=== PATIENT | male | born 1970 | race Caucasian/White ===

== ENCOUNTER 2017-10-12 13:21 | Observation (INO) | payer OTHER, SELFPAY ==
[2017-10-12] VITALS (13 sets, daily range): BP systolic 119–148; BP diastolic 74–94; PULSE 55–83; RESP 13–18; TEMP 36.4–36.7; O2SAT 93–98; BMI 36.5; BMI 36.6
--- NOTE | 2017-10-12 13:52 | RAD_ITS ---
STUDY: X-RAY CHEST REASON FOR EXAM: Male, 47 years old. Chest pain. TECHNIQUE: Single AP portable view of the chest. COMPARISON: None. FINDINGS: EKG electrodes are seen. The lungs are clear and expanded. Scattered calcified granulomas. There is no demonstrated pleural abnormality. Normal size heart. Normal mediastinum and gaurang. Normal visualized pulmonary arteries. Normal visualized aortic arch and descending thoracic aorta. There are diffuse degenerative changes of the visualized thoracic spine. Normal visualized ribs, clavicles, and shoulders. There is no demonstrated abnormality of the visualized soft tissue structures of the upper abdomen. RAD/Chest 1 View (Portable) IMPRESSION: Scattered calcified granulomas. Electronically Signed: Bryson Vizcaino MD at 15:01 EST Tel [phone], Service support ,
--- NOTE | 2017-10-12 13:52 | EKG12_ITS ---
Test Reason : Blood Pressure : / mmHG Vent. Rate : 074 BPM Atrial Rate : 074 BPM P-R Int : 134 ms QRS Dur : 100 ms QT Int : 396 ms P-R-T Axes : 033 -31 -20 degrees QTc Int : 439 ms Normal sinus rhythm Left axis deviation Voltage criteria for left ventricular hypertrophy Abnormal ECG Confirmed by ARAVIND WOODWARD, SHAY ([id number]), newspaper editor SIMEON FLORES ([id number]) on 10/15/2017 1:58:18 PM Referred By: MJ Confirmed By:SHAY NAZARIO MD
[2017-10-12 14:27] LABS: Anion Gap 7 (5-15); BUN 18 mg/dL (7-18); Chloride 106 mmol/L (98-107); Creatinine, Serum 1.29 mg/dL (0.70-1.30); EST Glomerular Filtration Rate 63 mL/min (>60); Est Glom Filt Rate - Afr Amer 77 mL/min (>60); Estimated Creatinine Clearance 68.49 ml/min; Glucose 102 mg/dL (74-106); Potassium 4.3 mmol/L (3.5-5.1); Sodium Level 138 mmol/L (136-145)
[2017-10-12 14:39] LABS: Absolute Lymphocyte Count 1.95 X10^3/ul (0.83-4.51); Basophil# 0.06 X10^3/uL; Basophil% 0.9 % (0-1); Eosinophil# 0.12 X10^3/uL; Eosinophils% 1.8 % (0-5); Hematocrit 47.9 % (40-54); Hemoglobin 16.5 g/dl (13.0-16.5); Lymphocyte # 1.95 X10^3/ul (4.0); Lymphocyte % 29.5 % (19-41); Mean Corp Hgb Conc 34.4 g/gl (32-36); Mean Corpuscular Hgb 29.4 pg (27.0-32.0); Mean Corpuscular Volume 85.4 fL (80-94); Mean Platelet Vol. 9.2 fl (6.2-12.0); Monocyte# 0.51 X10^3/uL; Monocyte% 7.7 % (0-10); Neutrophil # 3.98 X10^3/uL (2.7-7.7); Neutrophil % 60.1 % (47-70); Platelet Count 277 K/mm3 (150-450); RBC Distribution Width CV 13.3 % (11.6-14.6); RBC Distribution Width SD 40.8 fl (35.1-43.9); Red Blood Count 5.61 M/mm3 (4.6-6.2); White Blood Count 6.6 K/mm3 (4.4-11.0)
[2017-10-12] MEDS: 0.9% Normal Saline 1,000 ML 150 ML IV (14:39)
[2017-10-12] MEDS: Aspirin 81 MG TAB.CHEW 324 MG PO (14:39)
[2017-10-12 14:43] LABS: POSITIVE COUNT NO; POSITIVE DIFFERENTIAL NO; POSITIVE MORPHOLOGY NO
--- NOTE | 2017-10-12 15:43 | ED.VISSUMM ---
- ER Visit Summary Date of Service: 10/12/17 Chief Complaint: [Chest pain] History of Present Illness: The patient is a 47 M [presents to the emergency department with chest discomfort that started today. Patient was at the gym and after doing a 15 minute warmup on the treadmill and doing some work with ropes patient developed discomfort in his chest and left arm. Patient felt short of breath and lightheaded. When his symptoms did not resolve he presented to the ER for further evaluation. Patient recently had blood work with his primary care physician and was scheduled to have a stress test tomorrow. Patient has no cardiac history otherwise. Patient has never had discomfort like this. Currently he rates it chest pain 2 out of 10. She denies any recent travel or surgery. 3 of PE or cancer.] Physical Examination: [HEENT-PERRLA, EOMI. Cranial nerves II through XII grossly intact. TMs clear. Mucous membranes moist. No adenopathy. Cardiovascular-regular rate and rhythm without murmur or ectopy Lungs-clear to auscultation, chest wall stable without crepitus or subcu emphysema Abdomen-normoactive bowel sounds, soft, nontender, no rebound or rigidity, no peritoneal signs. Extremities-intact ?4, normal range of motion, normal pulses, atraumatic] Test Results: [EKG obtained on arrival shows sinus rhythm with a ventricular rate of 74 bpm patient had flipped T waves in leads III and aVF which when compared with prior EKG from 2013 these changes are chronic. CBC with differential was normal. Chemistries were unremarkable. Troponin was less than 0.02.] Emergency Department Course and Treatment: [Patient received aspirin in the emergency department and sublingual nitro which really did not improve his pain.] Treatment Plan: Patient will be admitted for further workup and evaluation of his chest pain [] Disposition: [Admit] Impression: [Chest pain-rule out acute coronary syndrome] This note was generated with [employer] dictation software. It may contain incorrect words, spelling, and punctuation that were not noted in review of the chart prior to signing ED Disposition - Plan for ED Patient: Chief Complaint: Chest Pain Referrals: Fidelia Hurley DO [Primary Care Provider] -
--- NOTE | 2017-10-12 15:46 | ED.DCSUM_ITS ---
- ER Visit Summary Date of Service: 10/12/17 Chief Complaint: [Chest pain] History of Present Illness: The patient is a 47 M [presents to the emergency department with chest discomfort that started today. Patient was at the gym and after doing a 15 minute warmup on the treadmill and doing some work with ropes patient developed discomfort in his chest and left arm. Patient felt short of breath and lightheaded. When his symptoms did not resolve he presented to the ER for further evaluation. Patient recently had blood work with his primary care physician and was scheduled to have a stress test tomorrow. Patient has no cardiac history otherwise. Patient has never had discomfort like this. Currently he rates it chest pain 2 out of 10. She denies any recent travel or surgery. 3 of PE or cancer.] Physical Examination: [HEENT-PERRLA, EOMI. Cranial nerves II through XII grossly intact. TMs clear. Mucous membranes moist. No adenopathy. Cardiovascular-regular rate and rhythm without murmur or ectopy Lungs-clear to auscultation, chest wall stable without crepitus or subcu emphysema Abdomen-normoactive bowel sounds, soft, nontender, no rebound or rigidity, no peritoneal signs. Extremities-intact ?4, normal range of motion, normal pulses, atraumatic] Test Results: [EKG obtained on arrival shows sinus rhythm with a ventricular rate of 74 bpm patient had flipped T waves in leads III and aVF which when compared with prior EKG from 2013 these changes are chronic. CBC with differential was normal. Chemistries were unremarkable. Troponin was less than 0.02.] Emergency Department Course and Treatment: [Patient received aspirin in the emergency department and sublingual nitro which really did not improve his pain. ] Treatment Plan: Patient will be admitted for further workup and evaluation of his chest pain [] Disposition: [Admit] Impression: [Chest pain-rule out acute coronary syndrome] This note was generated with [employer] dictation software. It may contain incorrect words, spelling, and punctuation that were not noted in review of the chart prior to signing ED Disposition - Plan for ED Patient: Chief Complaint: Chest Pain Referrals: Fidelia Hurley DO [Primary Care Provider] -
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
[2017-10-13 02:45] VITALS: BP 125/76; PULSE 63; RESP 16; TEMP 36.6; O2SAT 98
[2017-10-13 02:59] VITALS: PULSE 53
--- NOTE | 2017-10-13 05:55 | ECHOD_ITS ---
Reason For Study: Chest Pain Procedure This was a 2D Doppler, Color Flow transthoracic echocardiogram. Exam performed in department. Left Ventricle Normal LV size. Mild concentric left ventricular hypertrophy. Left ventricular systolic function is normal. The estimated ejection fraction is 65 %. No regional wall motion abnormalities noted. Right Ventricle Normal RV size. Normal systolic function. Atria Normal left atrium. Normal right atrium. Mitral Valve Normal mitral valve. Tricuspid Valve Normal tricuspid valve. Aortic Valve Normal aortic valve. Pulmonic Valve Normal pulmonic valve. Great Vessels Normal aortic root. The pulmonary artery is normal size. Inferior vena cava collapse with respiration. Pericardium/Pleural No pericardial effusion. MMode/2D Measurements & Calculations LVIDd: 4.0 cm IVSd: 1.5 cm Ao root diam: 3.5 cm LVIDs: 2.7 cm LVPWd: 1.2 cm LA dimension: 3.4 cm RVDd: 3.0 cm FS: 32.1 % LAV(MOD-bp): 26.7 ml LA A4 area: 13.7 cm2 RA A4 area: 11.7 cm2 LAV(MOD-bp) Indexed: 12.1 ml/m2 LAV(MOD-sp2): 23.2 ml LAV(MOD-sp4): 29.4 ml Doppler Measurements & Calculations MV E max marky: 61.9 cm/sec Lat Peak E' Marky: 9.9 cm/sec Med Peak E' Marky: 5.5 cm/sec MV A max marky: 61.1 cm/sec E/E' lat: 6.3 E/E' med: 11.3 MV E/A: 1.0 Ao V2 max: 120.2 cm/sec LV V1 max: 108.0 cm/sec PA V2 max: 92.5 cm/sec Ao max P.8 mmHg LV V1 max P.7 mmHg Ao V2 mean: 86.8 cm/sec Ao mean P.3 mmHg Ao V2 VTI: 23.8 cm PI end-d marky: 111.7 cm/sec Interpretation Summary Normal LV size. Mild concentric left ventricular hypertrophy. Left ventricular systolic function is normal. The estimated ejection fraction is 65 %. Structurally normal valves. Ordering Physician: Ray Tyler Referring Physician: Fidelia Hurley Performed By: Ana Weems, KYM, RVT
[2017-10-13 06:17] VITALS: PULSE 85
--- NOTE | 2017-10-13 09:07 | STRESSREP ---
Stress Test Report Exercise myocardial perfusion stress test. 47 yo man with chest pain. Stress protocol: Resting EKG demonstrates normal sinus rhythm with a rate of 58 bpm. Resting blood pressure is 130/90 mmHg. The patient exercised according to the regular Juancarlos protocol for total duration of 12 minutes completing stage IV of the Juancarlos protocol. The maximum heart rate attained was 164 bpm which was 94% of the maximum predicted heart rate. The maximum workload attained was 13.7 metabolic equivalents. The patient maintained sinus rhythm throughout the recording. At rest there were no ST or T-wave changes noted suggest ischemia at peak exercise upsloping ST changes only were noted we did not meet the criteria for ischemia. The resting blood pressure was 130/90 and the final blood pressure was 182/84 mmHg with a rate pressure product of 29,100. No clinical angina was noted the test was terminated due to leg fatigue. Myocardial perfusion protocol: 11.8 mCi of technetium 99m sestamibi was injected at rest. The patient exercised according to the Juancarlos protocol for 12 minutes and at peak exercise 32.7 mCi of technetium 99m sestamibi was injected. Stress images were obtained. Stress and resting images were reconstructed and compared in the short axis vertical long and horizontal long axis. Gated images were also obtained. Perfusion SPECT analysis: Review of the stress images demonstrate normal uptake of tracer noted in all areas of the myocardium. The resting images similarly demonstrate normal uptake of tracer noted in all areas of the myocardium. No areas of reversibility are noted to suggest ischemia. No previous infarct is noted. Gated SPECT analysis: The ejection fraction is noted to be 66%. Conclusion: Normal exercise myocardial perfusion stress test at a high workload with no evidence of ischemia. Good excellent functional capacity. No arrhythmias noted. Preserved ejection fraction.
[2017-10-13 09:43] VITALS: BP 103/63; PULSE 56; RESP 18; TEMP 36.8; O2SAT 97
--- NOTE | 2017-10-13 11:04 | PCM.DC ---
You will use the following diet at home:: Other - Low-cholesterol Discharge Activity: Return to Normal Activity Call your doctor if you observe: Numbness or Tingling, Shortness of breath, Dizziness, Fainting spells, Chest pain, Increased palpitations (irregular heartbeat), Calf discomfort Allergies/Adverse Reactions: Allergies No Known Allergies Allergy (Verified 10/12/17 14:37) Medications to take at Discharge Atorvastatin Calcium [Lipitor] 40 mg PO QHS #30 tab 10/13/17 Pantoprazole Sodium [Protonix] 20 mg PO DAILY #30 tab 10/13/17 The following prescriptions were given: Atorvastatin Calcium [Lipitor] 40 mg PO QHS #30 tab Pantoprazole Sodium [Protonix] 20 mg PO DAILY #30 tab Primary Care Physician: Fidelia Hurley DO [Primary Care Provider] - Please follow up with your Primary Care Physician in: 1-2 Weeks Proposed Discharge Date: 10/13/17
--- NOTE | 2017-10-13 11:05 | PCM.DC.SUM ---
<Marie Bonilla - Last Filed: 10/13/17 11:15> Discharge Date and Diagnosis Date of Admission: 10/12/17 Date of Discharge: 10/13/17 - Primary Discharge Diagnosis 1. Chest pain-ACS ruled out. 2. New diagnosis hyperlipidemia - Secondary Discharge Diagnosis Chronic Problems (Last Updated 10/05/17 @ 16:49 by Manuela Li) Hyperlipidemia (Chronic) Family history of ischemic heart disease (Chronic) Hospital Course and Treatment Imaging Results: Diagnostic Data Chest X-Ray 10/12/17 13:52 IMPRESSION: Scattered calcified granulomas. Electronically Signed: Bryson Vizcaino MD at 15:01 EST Tel [phone], Service support , Operations: None Procedures: 2-D Echocardiogram, Stress test Summary of Care Provided: The patient is a 47 year old M who was admitted 10/12/17 due to chest pain. Patient states he has had chronic chest pain for approximately 5 years which has increased in severity recently. His primary care physician referred him to Dr. Leon for outpatient stress test which was to be completed this morning. However, patient was exercising yesterday and had sharp pain with associated diaphoresis, shortness of breath and presented to the emergency room. Chest x-ray shows scattered calcified granulomas which is not a new finding. Patient had a CT scan 09/22/2017 which showed a stable 3 mm nodule in the lateral aspect of the right lower lobe. Troponin negative ?4. EKG without ST T changes. Echocardiogram shows an estimated ejection fraction of 65%. Patient underwent stress test which was negative for ischemia. He had a recent lipid panel which showed hyperlipidemia. He will begin atorvastatin 40 mg daily. He will also be discharged on Protonix 20 mg daily to see if this helps with his chronic chest pain. If no improvement after 1 month, he may discontinue. Recommend further outpatient follow-up with primary care physician. General: Alert, Oriented x3, Cooperative, No apparent distress HEENT: Atraumatic, PERRLA, EOMI, Normocephalic Neck: Supple, No JVD, Negative Carotid Bruits Lungs: Clear to auscultation, Normal air movement Cardiovascular: Regular rate, Regular Rhythm, Normal S1, Normal S2, No murmurs Abdomen: Bowel Sounds Present, Soft, Non Tender, Non-Distended, Obese Extremities: No clubbing, No cyanosis, No edema, Capillary Refill Less than 3 Seconds Skin: No rashes, No breakdown Musculoskeletal: No Tenderness to Palpation of Joints or Extremities Neurological: Cranial nerves II-XII grossly intact, Neuro grossly intact Psych/Mental Status: Normal Affect, Appropriate Patient seen and examined prior to discharge. Physical assessment as noted above. He denies further chest pain. Stable for discharge home with recommendations as noted above. This patient was seen by DAMASO Olvera under the supervision of Dr. Richter. Discharge Diet: Low fat/ Low Cholesterol Discharge Activity: Return to Normal Activity Call your doctor if you observe: Numbness or Tingling, Shortness of breath, Dizziness, Fainting spells, Chest pain, Increased palpitations (irregular heartbeat), Calf discomfort Home Medications: Medications to take at Discharge Atorvastatin Calcium [Lipitor] 40 mg PO QHS #30 tab 10/13/17 Pantoprazole Sodium [Protonix] 20 mg PO DAILY #30 tab 10/13/17 Following Prescrptions Were Given to Patient: Atorvastatin Calcium [Lipitor] 40 mg PO QHS #30 tab Pantoprazole Sodium [Protonix] 20 mg PO DAILY #30 tab Primary Care Physician: Fidelia Hurley DO [Primary Care Provider] - Please follow up with your Primary Care Physician in: 1-2 Weeks Disposition: Home Minutes spent on discharge:: 35 Patient Condition:: Stable Meaningful Use Info Meaningful Use Diagnoses (Choose all that apply): None applicable <Sergio Richter - Last Filed: 10/13/17 12:42> Discharge Date and Diagnosis - Secondary Discharge Diagnosis Chronic Problems (Last Updated 10/05/17 @ 16:49 by Manuela Li) Hyperlipidemia (Chronic) Family history of ischemic heart disease (Chronic) Hospital Course and Treatment Summary of Care Provided: Hospitalist note: Discharge summary above reviewed and I agree with above discharge plan. Patient admitted for chest pain to rule out acute coronary syndrome. His EKG revealed no evidence of acute ischemic changes. His troponin was negative ?4. Chest x-ray showed no acute findings. He underwent nuclear stress test in the context of that was negative for stress-induced myocardial ischemia. ACS ruled out. 2D echocardiogram revealed ejection fraction of 65%. Patient symptoms of attributed to probable GERD. Patient discharged home in a stable medical condition, discharged on Protonix trial for GERD, continue with on statins, recommended follow-up with PCP in 1-2 weeks. - Physical Exam General: Alert, Oriented x3, Cooperative, No apparent distress. HEENT: Atraumatic, PERRLA, EOMI. Neck: Supple, No JVD, Negative Carotid Bruits, Trachea Midline, Thyroid Normal. Lungs: Clear to auscultation, Normal air movement, No rhonchi, No wheeze, No rales. Cardiovascular: Regular rate, Regular Rhythm, Normal S1, Normal S2, PMI Normal. Abdomen: Bowel Sounds Present, Soft, Non Tender, Non-Distended, No Hepato-splenomegaly. Extremities: No clubbing, No cyanosis, No edema Skin: No rashes, No breakdown Neurological: Neuro grossly intact Vital Signs stable. . Minutes spent on discharge:: 24 Code Visit OBSV E&M: 21989 Observation care discharge
[2017-10-13 11:06] VITALS: PULSE 68
--- NOTE | 2017-10-13 11:15 | DS.PCM_ITS ---
<Marie Bonilla - Last Filed: 10/13/17 11:15> Discharge Date and Diagnosis Date of Admission: 10/12/17 Date of Discharge: 10/13/17 - Primary Discharge Diagnosis 1. Chest pain-ACS ruled out. 2. New diagnosis hyperlipidemia - Secondary Discharge Diagnosis Chronic Problems (Last Updated 10/05/17 @ 16:49 by Manuela Li) Hyperlipidemia (Chronic) Family history of ischemic heart disease (Chronic) Hospital Course and Treatment Imaging Results: Diagnostic Data Chest X-Ray 10/12/17 13:52 IMPRESSION: Scattered calcified granulomas. Electronically Signed: Bryson Vizcaino MD at 15:01 EST Tel [phone], Service support , Operations: None Procedures: 2-D Echocardiogram, Stress test Summary of Care Provided: The patient is a 47 year old M who was admitted 10/12/17 due to chest pain. Patient states he has had chronic chest pain for approximately 5 years which has increased in severity recently. His primary care physician referred him to Dr. Leon for outpatient stress test which was to be completed this morning. However, patient was exercising yesterday and had sharp pain with associated diaphoresis, shortness of breath and presented to the emergency room. Chest x- ray shows scattered calcified granulomas which is not a new finding. Patient had a CT scan 09/22/2017 which showed a stable 3 mm nodule in the lateral aspect of the right lower lobe. Troponin negative ?4. EKG without ST T changes. Echocardiogram shows an estimated ejection fraction of 65%. Patient underwent stress test which was negative for ischemia. He had a recent lipid panel which showed hyperlipidemia. He will begin atorvastatin 40 mg daily. He will also be discharged on Protonix 20 mg daily to see if this helps with his chronic chest pain. If no improvement after 1 month, he may discontinue. Recommend further outpatient follow-up with primary care physician. General: Alert, Oriented x3, Cooperative, No apparent distress HEENT: Atraumatic, PERRLA, EOMI, Normocephalic Neck: Supple, No JVD, Negative Carotid Bruits Lungs: Clear to auscultation, Normal air movement Cardiovascular: Regular rate, Regular Rhythm, Normal S1, Normal S2, No murmurs Abdomen: Bowel Sounds Present, Soft, Non Tender, Non-Distended, Obese Extremities: No clubbing, No cyanosis, No edema, Capillary Refill Less than 3 Seconds Skin: No rashes, No breakdown Musculoskeletal: No Tenderness to Palpation of Joints or Extremities Neurological: Cranial nerves II-XII grossly intact, Neuro grossly intact Psych/Mental Status: Normal Affect, Appropriate Patient seen and examined prior to discharge. Physical assessment as noted above. He denies further chest pain. Stable for discharge home with recommendations as noted above. This patient was seen by DAMASO Olvera under the supervision of Dr. Richter. Discharge Diet: Low fat/ Low Cholesterol Discharge Activity: Return to Normal Activity Call your doctor if you observe: Numbness or Tingling, Shortness of breath, Dizziness, Fainting spells, Chest pain, Increased palpitations (irregular heartbeat), Calf discomfort Home Medications: Medications to take at Discharge Atorvastatin Calcium [Lipitor] 40 mg PO QHS #30 tab 10/13/17 Pantoprazole Sodium [Protonix] 20 mg PO DAILY #30 tab 10/13/17 Following Prescrptions Were Given to Patient: Atorvastatin Calcium [Lipitor] 40 mg PO QHS #30 tab Pantoprazole Sodium [Protonix] 20 mg PO DAILY #30 tab Primary Care Physician: Fidelia Hurley DO [Primary Care Provider] - Please follow up with your Primary Care Physician in: 1-2 Weeks Disposition: Home Minutes spent on discharge:: 35 Patient Condition:: Stable Meaningful Use Info Meaningful Use Diagnoses (Choose all that apply): None applicable <Sergio Richter - Last Filed: 10/13/17 12:42> Discharge Date and Diagnosis - Secondary Discharge Diagnosis Chronic Problems (Last Updated 10/05/17 @ 16:49 by Manuela Li) Hyperlipidemia (Chronic) Family history of ischemic heart disease (Chronic) Hospital Course and Treatment Summary of Care Provided: Hospitalist note: Discharge summary above reviewed and I agree with above discharge plan. Patient admitted for chest pain to rule out acute coronary syndrome. His EKG revealed no evidence of acute ischemic changes. His troponin was negative ?4. Chest x-ray showed no acute findings. He underwent nuclear stress test in the context of that was negative for stress-induced myocardial ischemia. ACS ruled out. 2D echocardiogram revealed ejection fraction of 65%. Patient symptoms of attributed to probable GERD. Patient discharged home in a stable medical condition, discharged on Protonix trial for GERD, continue with on statins, recommended follow-up with PCP in 1-2 weeks. - Physical Exam General: Alert, Oriented x3, Cooperative, No apparent distress. HEENT: Atraumatic, PERRLA, EOMI. Neck: Supple, No JVD, Negative Carotid Bruits, Trachea Midline, Thyroid Normal. Lungs: Clear to auscultation, Normal air movement, No rhonchi, No wheeze, No rales. Cardiovascular: Regular rate, Regular Rhythm, Normal S1, Normal S2, PMI Normal. Abdomen: Bowel Sounds Present, Soft, Non Tender, Non-Distended, No Hepato- splenomegaly. Extremities: No clubbing, No cyanosis, No edema Skin: No rashes, No breakdown Neurological: Neuro grossly intact Vital Signs stable. . Minutes spent on discharge:: 24 Code Visit OBSV E&M: [id number] Observation care discharge
== END 2017-10-13 13:08 | disposition home or self-care (01) ==
LOC: ED 13:53 → PCU 16:13
PROVIDERS: Admitting Provider Internal Medicine; Emergency Provider Emergency Medicine; Family Provider Internal Medicine; PCP Internal Medicine; Visit Provider Hospitalist
DX: R07.2 Precordial pain (principal); E78.5 Hyperlipidemia, unspecified; R06.02 Shortness of breath; K21.9 Gastro-esophageal reflux disease without esophagitis; E66.9 Obesity, unspecified; Z82.49 Family history of ischemic heart disease and other diseases of the circulatory system; Z87.891 Personal history of nicotine dependence; Z68.36 Body mass index [BMI] 36.0-36.9, adult; Z71.3 Dietary counseling and surveillance
CPT/HCPCS: 36415; 71045; 78452; 80048; 84484; 85025; 93005; 93017; 93306; 96360; 96361; 99218; 99284; A9500; J7030; A4216; G0378

== ENCOUNTER → 2017-12-28 05:57 | Outpatient (CLI) | payer OTHER, SELFPAY ==
[2017-12-28 10:14] LABS: AST(SGOT) 30 U/L (15-37); Alanine Aminotransfer ALT/SGPT 34 U/L (16-61); Albumin, Serum 3.8 g/dL (3.2-5.0); Alkaline Phosphatase 89 U/L (45-117); Bilirubin, Direct 0.14 mg/dL (0.00-0.30); Cholesterol 191 mg/dL (200); Globulin 3.7 g/dL (2.2-4.2); High Density Lipoprotein 41 mg/dL; Protein, Total 7.5 g/dL (6.4-8.2); Triglycerides 198 mg/dL; Very Low Density Lipoprotein 40 mg/dL (5-40)
[2017-12-30 12:08] LABS: CHOLESTEROL TOTAL 211 mg/dL (100-199); HDL-C 39 mg/dL (>39); HDL-P TOTAL 30.6 umol/L (>=30.5); SMALL LDL-P 592 nmol/L (<=527); TRIGLYCERIDES 219 mg/dL (0-149)
[2017-12-30 15:39] LABS: LDL SIZE 20.5 nm (>20.5); LDL-C 128 mg/dL (0-99); LDL-P 1661 nmol/L (<1000); LP-IR SCORE ** 85 (<=45)
== END ==
PROVIDERS: Family Provider Internal Medicine; PCP Internal Medicine; Visit Provider Internal Medicine
DX: E78.00 Pure hypercholesterolemia, unspecified (principal)
CPT/HCPCS: 36415; 80061; 80076; 83704

== ENCOUNTER → 2018-03-29 06:14 | Outpatient (CLI) | payer OTHER, SELFPAY ==
[2018-03-31 15:14] LABS: CHOLESTEROL TOTAL 233 mg/dL (100-199); HDL-C 38 mg/dL (>39); HDL-P TOTAL 27.4 umol/L (>=30.5); SMALL LDL-P 800 nmol/L (<=527); TRIGLYCERIDES 209 mg/dL (0-149)
[2018-03-31 15:50] LABS: LDL SIZE 20.6 nm (>20.5); LDL-C 153 mg/dL (0-99); LDL-P 1717 nmol/L (<1000); LP-IR SCORE ** 67 (<=45)
== END ==
PROVIDERS: Family Provider Internal Medicine; PCP Internal Medicine; Visit Provider Internal Medicine
DX: E78.00 Pure hypercholesterolemia, unspecified (principal)
CPT/HCPCS: 36415; 80061; 83704

== ENCOUNTER 2020-12-11 17:37 | Outpatient (RCR) | payer OTHER, SELFPAY ==
[2017-10-12 16:36] VITALS: BMI 36.6
== END 2021-02-11 23:59 ==
LOC: IMMUN 17:37
PROVIDERS: Visit Provider Family Medicine
DX: Z23 Encounter for immunization (principal)
CPT/HCPCS: 0001A; 0002A; 91300

== ENCOUNTER → 2021-01-06 14:15 | Outpatient (CLI) | payer OTHER, SELFPAY ==
[2021-01-04 08:22] VITALS: BMI 36.6
--- NOTE | 2021-01-06 14:17 | RAD_ITS ---
STUDY: X-RAY - LEFT KNEE REASON FOR EXAM: Male, 50 years old. Left knee injury/pain TECHNIQUE: 3 view(s) of the knee. COMPARISON: None. FINDINGS: Normal visualized distal femur. Normal visualized proximal tibia and fibula. Normal proximal tibiofibular articulation. The chest spurring is seen along the anterior superior aspect of the patella. Normal medial femorotibial compartment. Normal lateral femorotibial compartment. Normal patellofemoral articulation. Small joint effusion. RAD/Knee 3 Views IMPRESSION: Small joint effusion. Electronically Signed: Bryson Vizcaino MD at 14:37 EDT , Service support ,
== END ==
PROVIDERS: Referring Provider Physician Assistant Medical; Visit Provider Physician Assistant Medical
DX: S89.92XA Unspecified injury of left lower leg, initial encounter (principal)
CPT/HCPCS: 73562

== ENCOUNTER → 2021-01-21 11:26 | Outpatient (CLI) | payer OTHER, SELFPAY ==
[2021-01-04 08:22] VITALS: BMI 36.6
--- NOTE | 2021-01-21 11:33 | US_ITS ---
STUDY: THYROID ULTRASOUND REASON FOR EXAM: Male, 50 years old. Palpable nodule on exam TECHNIQUE: Ultrasound evaluation of the thyroid was performed with real-time and static collado-scale imaging. COMPARISON: None. FINDINGS: RIGHT LOBE: The right lobe of the thyroid gland measures 4.6 x 1.6 x 1.3 cm. There is a homogeneous echotexture. There are no demonstrated solid, cystic or complex lesions. LEFT LOBE: The left lobe of the thyroid gland measures 4.6 x 1.6 x 1.6 cm. There is a homogeneous echotexture. There are no demonstrated solid, cystic or complex lesions. ISTHMUS: The isthmus measures 0.5 cm. The regional lymph nodes are normal. US/Thyroid IMPRESSION: Normal ultrasound examination of the thyroid. Electronically Signed: Christiano Castillo MD at 13:52 EDT , Service support ,
== END ==
PROVIDERS: Referring Provider Family Medicine; Visit Provider Family Medicine
DX: E04.1 Nontoxic single thyroid nodule (principal)
CPT/HCPCS: 76536

== ENCOUNTER 2021-03-11 05:56 | Day surgery (SDC) | payer OTHER, SELFPAY ==
[2021-01-04 08:22] VITALS: BMI 36.6
--- NOTE | 2021-03-11 06:18 | HP.PCM_ITS ---
HPI - General HPI Narrative SUSI XIAO, is a 50 M who presents today for screening colonoscopy. He has never had a previous procedure. He denies any personal problems of abdominal pain or bright red blood per rectum or melena. He is otherwise enjoying a good quality of life. [facility] Medical History (Updated 03/11/21 @ 06:[address] Dick Castillo MD) Alcohol use Arthritis Chest pain Family history of ischemic heart disease Former smoker History of pain when walking History of stress test Hx of echocardiogram Hyperlipidemia Wears glasses Home Medications ibuprofen 400 mg PO Q6H PRN 03/06/21 [History Last Taken Unknown] Allergy/AdvReac Type Severity Reaction Status Date / Time No Known Allergies Allergy Verified 03/06/21 11:18 Surgical History (Updated 03/06/21 @ 11:26 by Amairani Rojas) Hx of cystoscopy Social History Smoking Status: Former smoker ROS Constitutional Constitutional: Reports systems reviewed and no addt'l complaints, except as documented Cardiovascular Cardiovascular: Denies chest pain Respiratory/Chest Respiratory/Chest: Denies shortness of breath at rest Gastrointestinal Gastrointestinal: Denies abdominal pain, change in bowel habits, hematochezia or melena Vital Signs Vital Signs Vital Signs: Weight Body Mass Index (BMI) 36.6 Physical Exam Const alert, oriented x3 and no apparent distress General Appearance: cooperative and comfortable Eyes General Eye: normal appearance of both eyes Neck General: normal visual inspection Chest inspection of chest normal Resp Effort and Inspection: able to speak in complete sentences and symmetric chest movement Auscultation: clear to auscultation bilaterally Cardio regular rate and regular rhythm GI soft to palpation, non-tender and non-distended Extremity no calf tenderness Neuro oriented x3 Psych thought process normal Assessment & Plan Assessment/Plan (1) Screening for intestinal cancer: PLAN: I recommended the patient a screening colonoscopy with possible biopsy or polypectomy as indicated. He is aware of the technique, benefit, risk, alternatives. He has had an opportunity to ask and have questions answered. He presents via open access today. We will proceed as noted. Dick Castillo M.D., F.A.C.S.
[2021-03-11 06:34] VITALS: BP 141/95; PULSE 66; RESP 16; TEMP 36.6; O2SAT 95; BMI 35.2
[2021-03-11] MEDS: Lactated Ringers 1,000 ML 100 ML IV (06:40)
[2021-03-11 07:28] VITALS: BP 107/60; BP 141/95; PULSE 66; RESP 94; TEMP 35.9; O2SAT 94
--- NOTE | 2021-03-11 07:28 | OP.COLON_ITS ---
Patient Name: Mario Chacon Procedure Date: 03/11/2021 6:57 AM Date of : 1970 Age: 50 Procedure: Colonoscopy Indications: Screening for colorectal malignant neoplasm Providers: Dick Castillo MD Referring MD: Christian Mckinley Medicines: See the Anesthesia note for documentation of the administered medications Patient Profile: Last Colonoscopy: none. The patient's first colonoscopy is today. Complications: No immediate complications. Procedure: Pre-Anesthesia Assessment: - Prior to the procedure, a History and Physical was performed, and patient medications and allergies were reviewed. The patient's tolerance of previous anesthesia was also reviewed. The risks and benefits of the procedure and the sedation options and risks were discussed with the patient. All questions were answered, and informed consent was obtained. Prior Anticoagulants: The patient has taken no previous anticoagulant or antiplatelet agents. ASA Grade Assessment: I - A normal, healthy patient. After reviewing the risks and benefits, the patient was deemed in satisfactory condition to undergo the procedure. After I obtained informed consent, the scope was passed under direct vision. Throughout the procedure, the patient's blood pressure, pulse, and oxygen saturations were monitored continuously. The colonoscope was introduced through the anus and advanced to the cecum, identified by appendiceal orifice and ileocecal valve. The colonoscopy was performed without difficulty. The patient tolerated the procedure well. The quality of the bowel preparation was good. The ileocecal valve was photographed. Scope In: 7:10:45 AM Scope Withdrawal Time 0 hours 5 minutes 6 seconds Scope Out: 7:24:14 AM Total Procedure Duration Time 0 hours 13 minutes 29 seconds Findings: Hemorrhoids were found on perianal exam. Many diverticula were found in the sigmoid colon. The exam was otherwise without abnormality. Impression: - Hemorrhoids found on perianal exam. - Diverticulosis in the sigmoid colon. - The examination was otherwise normal. - No specimens collected. Recommendation: - Discharge patient to home. - Resume previous diet. - Continue present medications. - Repeat colonoscopy in 10 years for screening purposes. Procedure Code(s): --- Professional --- 23230, Colonoscopy, flexible; diagnostic, including collection of specimen(s) by brushing or washing, when performed (separate procedure) Diagnosis Code(s): --- Professional --- Z12.11, Encounter for screening for malignant neoplasm of colon K64.9, Unspecified hemorrhoids K57.30, Diverticulosis of large intestine without perforation or abscess without bleeding CPT copyright 2017 [employer]. All rights reserved. The codes documented in this report are preliminary and upon chef teacher review may be revised to meet current compliance requirements. Dick Castillo MD 03/11/2021 7:28:29 AM This report has been signed electronically. Number of Addenda: 0 Note Initiated On: 03/11/2021 6:57 AM
--- NOTE | 2021-03-11 07:29 | OP.CCLET_ITS ---
03/11/2021 Christian Mckinley [address] [place] [address] Re : Colonoscopy procedure for Mario Ines Dear Dr. Mckinley This procedure was performed on Thursday, March 11, 2021. My impressions and recommendations are as follows: Impressions : - Hemorrhoids found on perianal exam. - Diverticulosis in the sigmoid colon. - The examination was otherwise normal. - No specimens collected. Recommendations : - Discharge patient to home. - Resume previous diet. - Continue present medications. - Repeat colonoscopy in 10 years for screening purposes. My findings are described in the full procedure note, which is enclosed. If I can be of further assistance, please feel free to contact me at Doctor phone number(s): Work: . Sincerely, Dick Castillo MD 03/11/2021 7:28:29 AM This report has been signed electronically.
[2021-03-11 07:33] VITALS: BP 105/49; BP 141/95; PULSE 70; RESP 16; O2SAT 93
[2021-03-11 07:35] VITALS: BP 102/66; BP 141/95; PULSE 63; RESP 16; O2SAT 95
[2021-03-11 07:40] VITALS: BP 118/78; BP 141/95; PULSE 80; RESP 16; TEMP 36.2; O2SAT 93
[2021-03-11 07:58] VITALS: BP 141/95
== END 2021-03-11 08:00 | disposition home or self-care (01) ==
LOC: EN 06:01 → AC 06:01
PROVIDERS: PCP Family Medicine; Referring Provider Family Medicine; Visit Provider Surgery
PROC: 0DJD8ZZ Inspection of Lower Intestinal Tract, Via Natural or Artificial Opening Endoscopic (ICD-10-PCS; CPT 45378; principal; 2021-03-11 06:55)
DX: Z12.11 Encounter for screening for malignant neoplasm of colon (principal); K64.9 Unspecified hemorrhoids; K57.30 Diverticulosis of large intestine without perforation or abscess without bleeding; Z82.49 Family history of ischemic heart disease and other diseases of the circulatory system; Z87.891 Personal history of nicotine dependence; E78.5 Hyperlipidemia, unspecified
CPT/HCPCS: 45378; J7120; J2405

== ENCOUNTER → 2021-05-29 10:30 | Outpatient (CLI) | payer OTHER, SELFPAY ==
[2021-05-29 12:28] LABS: Absolute Lymphocyte Count 1.16 X10^3/uL (0.83-4.51); Absolute Neutrophil Count 2.4 X10^3/uL (2.0-7.7); Basophil# 0.04 X10^3/uL; Basophil% 0.9 % (0-1); Eosinophil# 0.02 X10^3/uL; Eosinophils% 0.5 % (0-5); Hematocrit 48.2 % (40-54); Hemoglobin 16.5 g/dL (13.0-16.5); Lymphocyte # 1.16 X10^3/ul (0.83-4.51); Lymphocyte % 26.9 % (19-41); Mean Corp Hgb Conc 34.2 g/dL (32-36); Mean Corpuscular Hgb 29.9 pg (27.0-32.0); Mean Corpuscular Volume 87.3 fL (80-94); Mean Platelet Vol. 9.5 fl (6.2-12.0); Monocyte# 0.67 X10^3/uL; Monocyte% 15.5 % (0-10); NRBC Flagged by Analyzer 0 % (0-5); Neutrophil % 55.7 % (47-70); Platelet Count 253 K/mm3 (150-450); RBC Distribution Width CV 13.1 % (11.6-14.6); Red Blood Count 5.52 M/mm3 (4.6-6.2); White Blood Count 4.3 K/mm3 (4.4-11.0)
[2021-05-29 12:40] LABS: Cholesterol 207 mg/dL (200); High Density Lipoprotein 36 mg/dL; T4 Free Direct 1.11 ng/dL (0.76-1.46); Triglycerides 237 mg/dL; Very Low Density Lipoprotein 47 mg/dL (5-40)
[2021-05-29 12:44] LABS: AST(SGOT) 39 U/L (15-37); Alanine Aminotransfer ALT/SGPT 53 U/L (16-61); Albumin, Serum 3.8 g/dL (3.2-5.0); Alkaline Phosphatase 83 U/L (45-117); Anion Gap 8 (5-15); BUN 14 mg/dL (7-18); BUN/Creat Ratio 15.8 RATIO (10-20); Chloride 100 mmol/L (98-107); Creatinine, Serum 0.89 mg/dL (0.70-1.30); EST Glomerular Filtration Rate 96 mL/min (>60); Est Glom Filt Rate - Afr Amer 117 mL/min (>60); Globulin 3.9 g/dL (2.2-4.2); Glucose 104 mg/dL (74-106); Potassium 4.3 mmol/L (3.5-5.1); Protein, Total 7.7 g/dL (6.4-8.2); Sodium Level 133 mmol/L (136-145); Thyroid Stim Hormone (TSH) 2.87 uIU/mL (0.358-3.74)
[2021-05-29 12:55] LABS: HIV - WCH Non-Reactive (Nonreactive)
[2021-05-29 14:03] LABS: Erythrocyte Sedimentation Rate 9 mm/hr (0-20)
[2021-06-02 18:06] LABS: Anti-Thyroglobulin AB < 1.0 IU/mL (0.0-0.9); Thyroglobulin, Serum Qt. 16.1 ng/mL (1.4-29.2); Thyroid Peroxidase AB < 8 IU/mL (0-34)
== END ==
PROVIDERS: Family Medicine; PCP Family Medicine; Referring Provider Family Medicine; Visit Provider Family Medicine
DX: E04.1 Nontoxic single thyroid nodule (principal); R61 Generalized hyperhidrosis
CPT/HCPCS: 36415; 80053; 80061; 84403; 84432; 84439; 84443; 85025; 85652; 86376; 86703; 86800

== ENCOUNTER → 2021-06-02 09:23 | Outpatient (CLI) | payer OTHER, SELFPAY ==
--- NOTE | 2021-06-02 09:30 | EKG12_ITS ---
Test Reason : PRE OP Blood Pressure : / mmHG Vent. Rate : 059 BPM Atrial Rate : 059 BPM P-R Int : 146 ms QRS Dur : 088 ms QT Int : 400 ms P-R-T Axes : 041 -35 -07 degrees QTc Int : 396 ms Sinus bradycardia Left axis deviation Abnormal ECG Confirmed by ARAVIND WOODWARD, SHAY ([id number]), editorial cartoonist JORGE DAMON ([id number]) on 06/04/2021 9:52:03 AM Referred By: Yannick Plunkett Confirmed By:SHAY NAZARIO MD
[2021-06-02 11:47] LABS: Anion Gap 8 (5-15); BUN 13 mg/dL (7-18); BUN/Creat Ratio 15.2 RATIO (10-20); Calcium,Total 8.9 mg/dL (8.5-10.1); Chloride 101 mmol/L (98-107); Creatinine, Serum 0.86 mg/dL (0.70-1.30); EST Glomerular Filtration Rate 101 mL/min (>60); Est Glom Filt Rate - Afr Amer 122 mL/min (>60); Glucose 101 mg/dL (74-106); Sodium Level 137 mmol/L (136-145)
== END ==
PROVIDERS: PCP Family Medicine; Referring Provider Orthopaedic Surgery; Visit Provider Orthopaedic Surgery
DX: Z01.810 Encounter for preprocedural cardiovascular examination (principal); Z01.818 Encounter for other preprocedural examination
CPT/HCPCS: 36415; 80048; 93005

== ENCOUNTER 2021-09-08 16:00 | Outpatient (CLI) | payer OTHER, SELFPAY | END 2021-09-08 23:59 | disposition short-term general hospital (02) | LOC: LABSPEC 09-11 13:47 | PROVIDERS: Visit Provider Family Medicine | DX: U07.1 COVID-19 (principal) | CPT/HCPCS: 87635; U0003; U0005 ==

== ENCOUNTER → 2023-08-10 | Outpatient (CLI) | payer OTHER, SELFPAY ==
[2023-08-10 10:12] LABS: Absolute Lymphocyte Count 1.69 X10^3/uL (0.83-4.51); Absolute Neutrophil Count 2.8 X10^3/uL (2.0-7.7); Basophil# 0.05 X10^3/uL; Eosinophil# 0.24 X10^3/uL; Eosinophils% 4.6 % (0-5); Hematocrit 50.4 % (40-54); Lymphocyte # 1.69 X10^3/ul (0.83-4.51); Lymphocyte % 32.3 % (19-41); Mean Corp Hgb Conc 33.7 g/dL (32-36); Mean Corpuscular Hgb 29.6 pg (27.0-32.0); Mean Corpuscular Volume 87.7 fL (80-94); Mean Platelet Vol. 9.4 fl (6.2-12.0); Monocyte# 0.49 X10^3/uL; Monocyte% 9.4 % (0-10); NRBC Flagged by Analyzer 0 % (0-5); Neutrophil # 2.75 X10^3/uL (2.7-7.7); Neutrophil % 52.5 % (47-70); Platelet Count 288 K/mm3 (150-450); RBC Distribution Width CV 12.9 % (11.6-14.6); Red Blood Count 5.75 M/mm3 (4.6-6.2); White Blood Count 5.2 K/mm3 (4.4-11.0)
[2023-08-10 11:05] LABS: ALB/GLOB Ratio 0.9 RATIO (0.9-2.4); AST(SGOT) 21 U/L (15-37); Alanine Aminotransfer ALT/SGPT 28 U/L (16-61); Albumin, Serum 3.7 g/dL (3.2-5.0); Alkaline Phosphatase 89 U/L (45-117); Anion Gap 4 (5-15); BUN 16 mg/dL (7-18); BUN/Creat Ratio 19.1 RATIO (10-20); Calcium,Total 8.5 mg/dL (8.5-10.1); Chloride 107 mmol/L (98-107); Cholesterol 225 mg/dL (200); Creatinine, Serum 0.84 mg/dL (0.70-1.30); EST Glomerular Filtration Rate 102 mL/min (>60); Est Glom Filt Rate - Afr Amer 123 mL/min (>60); Glucose 97 mg/dL (74-106); High Density Lipoprotein 42 mg/dL; Protein, Total 7.7 g/dL (6.4-8.2); Sodium Level 138 mmol/L (136-145); Triglycerides 200 mg/dL; Very Low Density Lipoprotein 40 mg/dL (5-40)
== END | disposition home or self-care (01) ==
LOC: MFPLAB 08:07
PROVIDERS: PCP Family Medicine; Visit Provider Family Medicine
DX: E78.5 Hyperlipidemia, unspecified (principal)
CPT/HCPCS: 36415; 80053; 80061; 85025; J7050; A4216

== ENCOUNTER → 2023-08-20 | Outpatient (CLI) | payer OTHER, SELFPAY ==
[2023-08-20 10:51] LABS: Ferritin 91 ng/mL (26-388); Iron 110 ug/dL (65-175); Iron Binding Capacity,Total 403 ug/dL (250-450)
[2023-08-21 05:07] LABS: Transferrin 293 mg/dL (177-329)
== END | disposition home or self-care (01) ==
LOC: MFPLAB 08:04
PROVIDERS: PCP Family Medicine; Visit Provider Family Medicine
DX: D75.1 Secondary polycythemia (principal)
CPT/HCPCS: 36415; 82728; 83540; 83550; 84466

== ENCOUNTER → 2024-06-27 | Outpatient (CLI) | payer OTHER, SELFPAY ==
[2024-06-27 10:34] LABS: ALB/GLOB Ratio 1.1 RATIO (0.9-2.4); AST(SGOT) 21 U/L (15-37); Alanine Aminotransfer ALT/SGPT 33 U/L (16-61); Albumin, Serum 3.6 g/dL (3.2-5.0); Alkaline Phosphatase 81 U/L (45-117); Anion Gap 5 (5-15); BUN 11 mg/dL (7-18); BUN/Creat Ratio 12.8 RATIO (10-20); Calcium,Total 8.6 mg/dL (8.5-10.1); Chloride 107 mmol/L (98-107); Cholesterol 221 mg/dL (200); Creatinine, Serum 0.86 mg/dL (0.70-1.30); EST Glomerular Filtration Rate 99 mL/min (>60); Est Glom Filt Rate - Afr Amer 119 mL/min (>60); Globulin 3.3 g/dL (2.2-4.2); Glucose 98 mg/dL (74-106); High Density Lipoprotein 40 mg/dL; PSA,Total- Diagnostic 1.57 ng/mL (0.0-4.0); Potassium 4.1 mmol/L (3.5-5.1); Protein, Total 6.9 g/dL (6.4-8.2); Sodium Level 140 mmol/L (136-145); Triglycerides 149 mg/dL; Very Low Density Lipoprotein 30 mg/dL (5-40)
[2024-06-27 11:01] LABS: Hematocrit 46.9 % (40-54); Mean Corp Hgb Conc 34.1 g/dL (32-36); Mean Corpuscular Hgb 30.1 pg (27.0-32.0); Mean Corpuscular Volume 88.2 fL (80-94); Mean Platelet Vol. 9.5 fl (6.2-12.0); Platelet Count 274 K/mm3 (150-450); RBC Distribution Width CV 12.9 % (11.6-14.6); RBC Distribution Width SD 41.8 fl (35.1-43.9); Red Blood Count 5.32 M/mm3 (4.6-6.2); White Blood Count 5.5 K/mm3 (4.4-11.0)
== END | disposition home or self-care (01) ==
PROVIDERS: PCP Family Medicine; Referring Provider Family Medicine; Visit Provider Family Medicine
DX: Z00.00 Encounter for general adult medical examination without abnormal findings (principal); E78.5 Hyperlipidemia, unspecified
CPT/HCPCS: 36415; 80053; 80061; 84153; 85027

== ENCOUNTER → 2024-08-15 | Outpatient (CLI) | payer OTHER, SELFPAY ==
--- NOTE | 2024-08-15 15:44 | CT_ITS ---
STUDY: LOW DOSE CT LUNG CANCER SCREENING REASON FOR EXAM: Male, 53 years old. Tobacco use. Current smoker. Patient smokes half a pack per day for 35 years. RADIATION DOSAGE (If Supplied By Facility): CTDIvol = ( 4.02 ) mGy, DLP = ( 119.84 ) mGycm TECHNIQUE: No contrast was administered. Low dose technique was utilized (average mAS-38 and kVp 120). 1.25 mm axial source images with a slice interval of 1.25-mm were reconstructed in lung windows. 2.5 mm axial source images with a slice interval of 2.5-mm were reconstructed in lung windows. 5.0 mm axial source images with a slice interval of 5.0-mm were reconstructed in soft tissue windows. COMPARISON: Comparison is made with prior study dated September 22, 2017. NODULES: No suspicious nodules are seen. Mild scarring at the lung bases. Emphysema: Unremarkable Endobronchial lesion: Unremarkable Aorta: Scattered calcific plaques. CORONARY ARTERIES: Coronary artery calcification is seen. Heart: Unremarkable Pulmonary artery: Unremarkable Mediastinal nodes: Unremarkable Other chest and abdominal findings: Prior ORIF of right lower ribs. CT/Low Dose CT Lung Screening IMPRESSION: Lung-RADS category 2 - Continue annual screening with LDCT in 12 months. IMPORTANT NOTES FOR USE: ACR Lung-RADS Version 1.1 Assessment Categories Release Date: 2018 Category: Coded 0-4 bases on nodule(s) with highest degree of suspicion. Negative screen is defined as categories 1 and 2; a positive screen is defined as categories 3 and 4. Category 3 and 4A nodules that are unchanged on interval CT should be coded as category 2, and individuals returned to screening in 12 months. Category 4X: Category 3 or 4 nodules with additional imaging findings that increase the suspicion of lung cancer, such as spiculation, GGN that doubles in size in 1 year, enlarged lymph notes, etc. Category Modifiers: S (significant finding unrelated to lung cancer) Electronically Signed: Bryson Vizcaino MD at 15:35 EST ,
== END | disposition home or self-care (01) ==
PROVIDERS: PCP Family Medicine; Referring Provider Family Medicine; Visit Provider Family Medicine
DX: Z12.2 Encounter for screening for malignant neoplasm of respiratory organs (principal); F17.210 Nicotine dependence, cigarettes, uncomplicated
CPT/HCPCS: 71271

== ENCOUNTER 2024-11-10 12:13 | Outpatient (CLI) | payer OTHER, SELFPAY ==
--- NOTE | 2024-11-10 12:19 | CT_ITS ---
PROCEDURE: LIMITED CHEST CT CARDIAC ONLY REASON FOR EXAM: Atherosclerotic heart disease. TECHNIQUE: Chest CT with intravenous contrast and 3D reconstructions. CONTRAST: 100 cc of Isovue-300. COMPARISON: None. FINDINGS: CHEST: Lines and tubes: None. Mediastinum: Small mediastinal lymph nodes. Heart: Mild coronary artery calcification. Thoracic Aorta: No evidence of acute traumatic aortic injury. Lungs and Airways: Mild increased linear markings at the lung bases slightly more prominent on the right side suggestive of bibasilar scarring. Pleura: No pleural effusion. No pneumothorax. Bones: No acute osseous abnormality identified. CT/Limited Chest CT Cardiac Only IMPRESSION: Coronary artery calcification. Findings suggestive of mild bibasilar scarring. One or more dose reduction techniques were used (e.g., Automated exposure contr ol, adjustment of the mA and/or kV according to patient size, use of iterative reconstruction technique). Reading Location: [id number]
[2024-11-10 12:25] VITALS: BP 153/91; PULSE 72; RESP 18; O2SAT 95; BMI 35.9
[2024-11-10 12:40] VITALS: BP 113/84; PULSE 70
[2024-11-10] MEDS: Nitroglycerin SL (ED/IMG/CATH) 0.4 MG TABLET SL (12:40)
[2024-11-10 12:45] VITALS: BP 113/84; PULSE 89; RESP 18; O2SAT 98
[2024-11-10] MEDS: 0.9% Saline Lock 10 ML Syringe IV (12:49)
--- NOTE | 2024-11-20 11:38 | CCTA.WCONT ---
CCTA w/Cont Coronary Arteries Date of Study:: 11/10/24 Calcification noted on his CT scan Coronary Calcium Scoring: High-resolution Computed Tomographic imaging of the chest was performed on [11/10/2024], with particular attention paid to the coronary arteries. Intravenous contrast agent was administered per protocol and images reconstructed and displayed. LEFT MAIN CORONARY ARTERY: Arises from the left main coronary cusp. Bifurcates into left anterior descending to low circumflex artery. No significant atherosclerotic plaquing is noted coronary calcium score 0. [] LEFT ANTERIOR DESCENDING CORONARY ARTERY: Arises from the left main coronary artery with minimal proximal eccentric calcification noted coronary calcium score 64 no significant obstructive disease is noted. [] LEFT CIRCUMFLEX CORONARY ARTERY: Nondominant vessel with no significant atherosclerotic plaquing noted. Coronary calcium score is 0. [] RIGHT CORONARY ARTERY: Dominant right coronary artery with no significant atherosclerotic plaquing noted coronary calcium score is 0. [] THORACIC AORTA: [] PULMONARY ARTERY: [] LEFT ATRIUM/APPENDAGE: [] MITRAL VALVE: [] AORTIC VALVE: [] LEFT VENTRICLE: [] CORONARY CALCIUM SCORE: Total coronary calcium score 64. This places the patient between the 50th and 75[address] angiogram demonstrating nonobstructive coronary disease present. []
== END 2024-11-10 23:59 | disposition home or self-care (01) ==
PROVIDERS: PCP Family Medicine; Referring Provider Family Medicine; Visit Provider Family Medicine
DX: I25.10 Atherosclerotic heart disease of native coronary artery without angina pectoris (principal)
CPT/HCPCS: 75571; 75574; 76380; Q9967; A4216